=== PATIENT | female | born 1950 | race Caucasian/White ===

== ENCOUNTER 2022-07-01 11:03 | Day surgery (SDC) | payer MEDICARE, BC ==
[2022-06-24 12:53] LABS: BASOPHILS % (AUTO) 0.4 % (0-1); EOSINOPHILS # (AUTO) 0.2 X10'3 (0-0.9); EOSINOPHILS % (AUTO) 2.4 % (0-6); HEMATOCRIT 44.1 % (35.0-45.0); HEMOGLOBIN 14.6 g/dl (12.0-16.0); LYMPHOCYTES # (AUTO) 1.5 X10'3 (1.1-4.8); LYMPHOCYTES % (AUTO) 18.4 % (21-51); MEAN CORPUSCULAR HEMOGLOBIN 31.2 PG (27.0-31.0); MEAN CORPUSCULAR VOLUME 94.4 FL (78-98); MEAN PLATELET VOLUME 7.8 FL (7.4-10.4); MONOCYTES # (AUTO) 0.5 X10'3 (0-0.9); MONOCYTES % (AUTO) 6.3 % (2-12); NEUTROPHILS # (AUTO) 5.8 X10'3 (1.8-7.7); NEUTROPHILS % (AUTO) 72.5 % (42-75); PLATELET COUNT 246 X10'3 (140-440); RED BLOOD COUNT 4.67 X10'6 (4.20-5.60); RED CELL DISTRIBUTION WIDTH 13.8 % (11.5-14.5)
[2022-06-24 13:02] LABS: ALBUMIN 4.1 G/DL (3.4-5.0); ANION GAP 11 (8-16); BLOOD UREA NITROGEN 16 MG/DL (7-18); BUN/CREATININE RATIO 13.8 (6.6-38.0); CALCIUM 9.5 MG/DL (8.5-10.1); CHLORIDE 101 MMOL/L (99-107); CREATININE 1.16 MG/DL (0.40-0.90); GLUCOSE 95 MG/DL (70-104); POTASSIUM 4.3 MMOL/L (3.5-5.1); SODIUM 140 MMOL/L (135-145); TOTAL CARBON DIOXIDE 28.5 MMOL/L (24-32); eGFR 46 ML/MIN
[2022-06-24 13:05] LABS: APTT 30 SECONDS (22-32)
[~2022-07-01] VITALS: Ht 157.5 cm; Wt 65.2 kg
[2022-07-01] VITALS (11 sets, daily range): BP systolic 100–139; BP diastolic 46–97
[2022-07-01] MEDS ORDERED: fentaNYL/PF 50MCG/1 ML 2ML syringe IV ONE (11:40)
[2022-07-01] MEDS ORDERED: MIDAZolam 1mg/ml 10ml vial IV ONE (11:40)
[2022-07-01] MEDS ORDERED: normal saline 1000ml 1,000 ML IV SCH (11:40)
[2022-07-01] MEDS ORDERED: RIBO1POW3 PO (11:43)
[2022-07-01] MEDS ORDERED: ERGO500041 PO (11:43)
[2022-07-01] MEDS ORDERED: ASPI81TA52 PO (11:43)
[2022-07-01] MEDS ORDERED: [UNRECOGNIZED DRUG - OTHER] PO (11:43)
[2022-07-01] MEDS ORDERED: ACET-3414 PO (11:43)
[2022-07-01] MEDS ORDERED: CELE-85 PO (11:43)
[2022-07-01] MEDS ORDERED: lions mane PO (11:43)
[2022-07-01] MEDS ORDERED: MULT-1085 PO (11:43)
[2022-07-01] MEDS ORDERED: magnesium PO (11:43)
[2022-07-01] MEDS ORDERED: MILK175C5 (11:43)
[2022-07-01] MEDS ORDERED: COMPOUNDED HORMONES (11:43)
[2022-07-01] MEDS ORDERED: VITA-268 PO (11:43)
[2022-07-01] MEDS ORDERED: APIX5TAB3 PO (11:43)
[2022-07-01] MEDS ORDERED: METO50TA17 PO (11:43)
== END 2022-07-01 15:30 | disposition home or self-care (01) ==
LOC: SSTAY O 11:03
PROVIDERS: ATTEND Student in an Organized Health Care Education/Training Program
DX: I48.91 Unspecified atrial fibrillation (principal); I50.9 Heart failure, unspecified; I08.1 Rheumatic disorders of both mitral and tricuspid valves; E03.9 Hypothyroidism, unspecified; Z79.01 Long term (current) use of anticoagulants; Z79.899 Other long term (current) drug therapy
CPT/HCPCS: 36415; 80048; 85025; 85610; 85730; 92960; 93005; J2250; J3010; J7030; A4620

== ENCOUNTER 2024-02-24 14:02 | Outpatient (CLI) | payer MEDICARE, OTHER ==
[~2024-02-24 14:02] MED LIST: ACET-3414 PO; APIX5TAB3 PO; ASPI81TA52 PO; CELE-127 PO; COMPOUNDED HORMONES; ERGO500041 PO; METO50TA17 PO; MILK175C5; MULT-1085 PO; RIBO1POW3 PO; VITA-268 PO; [UNRECOGNIZED DRUG - OTHER] PO; lions mane PO; magnesium PO
== END 2024-02-24 23:59 | disposition home or self-care (01) ==
LOC: MRI02 14:02
PROVIDERS: ATTEND Physical Medicine & Rehabilitation
DX: M47.817 Spondylosis without myelopathy or radiculopathy, lumbosacral region (principal); M51.369 Other intervertebral disc degeneration, lumbar region without mention of lumbar back pain or lower extremity pain; M43.16 Spondylolisthesis, lumbar region; M54.50 Low back pain, unspecified; R20.9 Unspecified disturbances of skin sensation; M25.551 Pain in right hip; Z68.24 Body mass index [BMI] 24.0-24.9, adult
CPT/HCPCS: 72148